=== PATIENT | male | born 1960 | race Caucasian/White ===

== ENCOUNTER 2017-10-24 12:15 | Emergency (ER) | payer OTHER ==
[~2017-10-24] VITALS: Ht 167.6 cm; Wt 81.8 kg
[2017-10-24] MEDS ORDERED: INSLAN SQ (12:21)
[2017-10-24] MEDS ORDERED: ASPI-1182 PO (12:21)
[2017-10-24] MEDS ORDERED: [UNRECOGNIZED DRUG - REMARK] PO (12:21)
[2017-10-24] MEDS ORDERED: FURO40 PO (12:21)
[2017-10-24] MEDS ORDERED: CEPHALEXIN MONOHYDRATE 500 MG CAPSULE PO ONE (13:15)
[2017-10-24] MEDS ORDERED: AMOX TR/POT CLAV 875 MG/125 MG TABLET PO ONE (13:15)
[2017-10-24] MEDS ORDERED: PERTUSS(ACELL),DIPH,TET VAC/PF 0.5 ML VIAL IM ONE (13:15)
[2017-10-24] MEDS ORDERED: SILVER SULFADIAZINE 1% 25 GM CREAM TP ONE (13:30)
[2017-10-24 13:45] VITALS: BP 149/97
== END 2017-10-24 13:49 | disposition home or self-care (01) ==
LOC: EMS 12:16
DX: T25.222A Burn of second degree of left foot, initial encounter (principal); E11.9 Type 2 diabetes mellitus without complications; I11.0 Hypertensive heart disease with heart failure; I50.9 Heart failure, unspecified; Z86.73 Personal history of transient ischemic attack (TIA), and cerebral infarction without residual deficits; Z79.4 Long term (current) use of insulin; Z95.1 Presence of aortocoronary bypass graft; X08.8XXA Exposure to other specified smoke, fire and flames, initial encounter; Y93.89 Activity, other specified; Y92.89 Other specified places as the place of occurrence of the external cause; Y99.8 Other external cause status
CPT/HCPCS: 16020; 82962; 90471; 90715; 99284; Z7610